=== PATIENT | female | born 1965 | race Caucasian/White ===

== ENCOUNTER → 2023-05-20 | Outpatient (CLI) | payer OTHER ==
[~2023-05-20] MED LIST: AMLO1TAB25; CAPE1TAB2 PO; DIPH2.5T15; EXEM25TA; GABA-1171; PRAM0.754; RYTA1CAP; TUCA150T PO; VENL150C43; [UNRECOGNIZED DRUG - CODE]
== END ==
LOC: M CARPUL 10:28
PROVIDERS: ATTEND Specialist
DX: C50.919 Malignant neoplasm of unspecified site of unspecified female breast (principal)

== ENCOUNTER → 2023-07-15 | Outpatient (CLI) | payer OTHER ==
[~2023-07-15] MED LIST changes: +BACI500O8 TOP; +CEPH500C
== END ==
LOC: M RAD 10:54
PROVIDERS: ATTEND Nurse Practitioner
DX: M25.551 Pain in right hip (principal)

== ENCOUNTER → 2023-07-16 | Outpatient (CLI) | payer OTHER | LOC: M ONCM 14:25 | PROVIDERS: ATTEND Dietitian, Registered | DX: Z71.3 Dietary counseling and surveillance (principal); D05.12 Intraductal carcinoma in situ of left breast; Z68.1 Body mass index [BMI] 19.9 or less, adult ==

== ENCOUNTER → 2023-08-16 | Outpatient (CLI) | payer OTHER ==
[~2023-08-16] MED LIST changes: +DIPH1TAB81; +DIPH1TAB81 PO; -DIPH2.5T15; +LOPE1CAP5 PO
== END ==
LOC: M PLAIMG 10:14
PROVIDERS: ATTEND Specialist
DX: C50.919 Malignant neoplasm of unspecified site of unspecified female breast (principal)

== ENCOUNTER → 2023-08-22 | Outpatient (CLI) | payer OTHER ==
[~2023-08-22] VITALS: Ht 157.5 cm; Wt 49.3 kg
[~2023-08-22] MED LIST changes: +HYDR-3713 PO
[2023-08-22 10:19] VITALS: BP 133/81; O2SAT 99
== END ==
LOC: M PAL 09:50
PROVIDERS: ATTEND Nurse Practitioner Adult Health
DX: G62.9 Polyneuropathy, unspecified (principal); G24.9 Dystonia, unspecified; M25.551 Pain in right hip; C50.912 Malignant neoplasm of unspecified site of left female breast; C78.7 Secondary malignant neoplasm of liver and intrahepatic bile duct; C78.89 Secondary malignant neoplasm of other digestive organs; G20.B1 Parkinson's disease with dyskinesia, without mention of fluctuations; R19.7 Diarrhea, unspecified; D69.6 Thrombocytopenia, unspecified; Z51.5 Encounter for palliative care; R29.6 Repeated falls; F17.210 Nicotine dependence, cigarettes, uncomplicated; Z71.2 Person consulting for explanation of examination or test findings; Z79.620 Long term (current) use of immunosuppressive biologic; Z79.899 Other long term (current) drug therapy; Z80.0 Family history of malignant neoplasm of digestive organs; Z80.1 Family history of malignant neoplasm of trachea, bronchus and lung; Z90.12 Acquired absence of left breast and nipple; Z91.048 Other nonmedicinal substance allergy status; Z96.82 Presence of neurostimulator

== ENCOUNTER → 2023-09-03 | Outpatient (CLI) | payer OTHER | LOC: M RAD 09:54 | PROVIDERS: ATTEND Specialist | DX: M25.551 Pain in right hip (principal) | CPT/HCPCS: 78306; A9503 ==

== ENCOUNTER → 2023-10-02 | Outpatient (CLI) | payer OTHER ==
[~2023-10-02] MED LIST changes: +AZIT-12 PO; +GASTROGRAFIN SOLUTION 30ML As Ordered ONE; +ISOVUE-370 76% 100ML VIAL As Ordered ONE
== END ==
LOC: M RAD 13:02
PROVIDERS: ATTEND Specialist
DX: C50.919 Malignant neoplasm of unspecified site of unspecified female breast (principal)
CPT/HCPCS: 71260; 74177; Q9963; Q9967

== ENCOUNTER → 2023-11-12 | Outpatient (CLI) | payer OTHER ==
[~2023-11-12] VITALS: Ht 157.5 cm; Wt 2.0 kg
[~2023-11-12] MED LIST changes: -AMLO1TAB25; +AMLO1TAB25 PO; +CHOL4POW26 PO; -GABA-1171; +GABA-1171 PO; -GASTROGRAFIN SOLUTION 30ML As Ordered ONE; -ISOVUE-370 76% 100ML VIAL As Ordered ONE; +POTA-151 PO; +PRAM0.754 PO; -VENL150C43; +VENL150C43 PO; -[UNRECOGNIZED DRUG - CODE]; +[UNRECOGNIZED DRUG - CODE] PO
[2023-11-12 08:53] VITALS: BP 140/89; O2SAT 97
== END ==
LOC: M PAL 08:41
PROVIDERS: ATTEND Nurse Practitioner Adult Health
DX: G62.9 Polyneuropathy, unspecified (principal); G24.9 Dystonia, unspecified; M25.551 Pain in right hip; C50.912 Malignant neoplasm of unspecified site of left female breast; C78.7 Secondary malignant neoplasm of liver and intrahepatic bile duct; C78.89 Secondary malignant neoplasm of other digestive organs; G20.B1 Parkinson's disease with dyskinesia, without mention of fluctuations; R19.7 Diarrhea, unspecified; D69.6 Thrombocytopenia, unspecified; Z51.5 Encounter for palliative care; R29.6 Repeated falls; F17.210 Nicotine dependence, cigarettes, uncomplicated; Z71.2 Person consulting for explanation of examination or test findings; Z79.620 Long term (current) use of immunosuppressive biologic; Z79.899 Other long term (current) drug therapy; Z80.0 Family history of malignant neoplasm of digestive organs; Z80.1 Family history of malignant neoplasm of trachea, bronchus and lung; Z90.12 Acquired absence of left breast and nipple; Z91.048 Other nonmedicinal substance allergy status; Z96.82 Presence of neurostimulator

== ENCOUNTER → 2023-11-25 | Outpatient (CLI) | payer OTHER ==
[~2023-11-25] MED LIST changes: +AMLO1TAB25; -AMLO1TAB25 PO; +GABA-1171; -GABA-1171 PO; +VENL150C43; -VENL150C43 PO; +[UNRECOGNIZED DRUG - CODE]; -[UNRECOGNIZED DRUG - CODE] PO
== END ==
LOC: M CARPUL 09:51
PROVIDERS: ATTEND Specialist
DX: C50.919 Malignant neoplasm of unspecified site of unspecified female breast (principal)

== ENCOUNTER → 2024-01-14 | Outpatient (CLI) | payer OTHER ==
[~2024-01-14] VITALS: Ht 157.5 cm; Wt 49.5 kg
[~2024-01-14] MED LIST changes: -AMLO1TAB25; +AMLO1TAB25 PO; -GABA-1171; +GABA-1171 PO; -VENL150C43; +VENL150C43 PO; -[UNRECOGNIZED DRUG - CODE]; +[UNRECOGNIZED DRUG - CODE] PO
[2024-01-14 13:14] VITALS: BP 153/91; O2SAT 97
== END ==
LOC: M PAL 12:52
PROVIDERS: ATTEND Nurse Practitioner Adult Health
DX: G62.9 Polyneuropathy, unspecified (principal); G24.9 Dystonia, unspecified; M25.551 Pain in right hip; C50.912 Malignant neoplasm of unspecified site of left female breast; C78.7 Secondary malignant neoplasm of liver and intrahepatic bile duct; C78.89 Secondary malignant neoplasm of other digestive organs; G20.B1 Parkinson's disease with dyskinesia, without mention of fluctuations; D69.6 Thrombocytopenia, unspecified; Z51.5 Encounter for palliative care; R29.6 Repeated falls; F17.210 Nicotine dependence, cigarettes, uncomplicated; Z79.620 Long term (current) use of immunosuppressive biologic; Z79.891 Long term (current) use of opiate analgesic; Z79.899 Other long term (current) drug therapy; Z80.0 Family history of malignant neoplasm of digestive organs; Z80.1 Family history of malignant neoplasm of trachea, bronchus and lung; Z90.12 Acquired absence of left breast and nipple; Z91.048 Other nonmedicinal substance allergy status; Z96.82 Presence of neurostimulator; Z71.2 Person consulting for explanation of examination or test findings

== ENCOUNTER → 2024-02-20 | Outpatient (CLI) | payer OTHER ==
[~2024-02-20] VITALS: Ht 157.5 cm; Wt 56.5 kg
[~2024-02-20] MED LIST changes: -RYTA1CAP; +RYTA1CAP PO
[2024-02-20 13:48] VITALS: BP 132/78; O2SAT 98
== END ==
LOC: M PAL 13:08
PROVIDERS: ATTEND Nurse Practitioner Adult Health
DX: G62.9 Polyneuropathy, unspecified (principal); M25.551 Pain in right hip; C50.912 Malignant neoplasm of unspecified site of left female breast; C78.7 Secondary malignant neoplasm of liver and intrahepatic bile duct; C78.89 Secondary malignant neoplasm of other digestive organs; G20.B1 Parkinson's disease with dyskinesia, without mention of fluctuations; D69.6 Thrombocytopenia, unspecified; R19.7 Diarrhea, unspecified; Z51.5 Encounter for palliative care; R29.6 Repeated falls; F17.210 Nicotine dependence, cigarettes, uncomplicated; Z79.620 Long term (current) use of immunosuppressive biologic; Z79.891 Long term (current) use of opiate analgesic; Z79.899 Other long term (current) drug therapy; Z80.0 Family history of malignant neoplasm of digestive organs; Z80.1 Family history of malignant neoplasm of trachea, bronchus and lung; Z90.12 Acquired absence of left breast and nipple; Z91.048 Other nonmedicinal substance allergy status; Z96.82 Presence of neurostimulator

== ENCOUNTER → 2024-05-04 | Outpatient (CLI) | payer OTHER | LOC: M PLARAD 09:31 | PROVIDERS: ATTEND Nurse Practitioner Women's Health | DX: C50.912 Malignant neoplasm of unspecified site of left female breast (principal) | CPT/HCPCS: 78815; A9552 ==

== ENCOUNTER → 2024-05-27 | Outpatient (CLI) | payer OTHER ==
[~2024-05-27] VITALS: Ht 157.5 cm; Wt 51.1 kg
[2024-05-27 13:11] VITALS: BP 156/94; O2SAT 97
== END ==
LOC: M PAL 12:53
PROVIDERS: ATTEND Family Medicine
DX: Z51.5 Encounter for palliative care (principal); C50.912 Malignant neoplasm of unspecified site of left female breast; C78.7 Secondary malignant neoplasm of liver and intrahepatic bile duct; C78.89 Secondary malignant neoplasm of other digestive organs; R52 Pain, unspecified; Z79.899 Other long term (current) drug therapy; Z91.048 Other nonmedicinal substance allergy status; Z92.21 Personal history of antineoplastic chemotherapy

== ENCOUNTER → 2024-06-26 | Outpatient (CLI) | payer OTHER | LOC: M CARPUL 10:55 | PROVIDERS: ATTEND Nurse Practitioner Women's Health | DX: Z51.81 Encounter for therapeutic drug level monitoring (principal); Z79.69 Long term (current) use of other immunomodulators and immunosuppressants; I08.3 Combined rheumatic disorders of mitral, aortic and tricuspid valves ==

== ENCOUNTER → 2024-07-09 | Outpatient (CLI) | payer OTHER ==
[~2024-07-09] MED LIST changes: +ONDA-282 PO
== END ==
LOC: M ONCR 09:59
PROVIDERS: ATTEND General Practice
DX: C77.2 Secondary and unspecified malignant neoplasm of intra-abdominal lymph nodes (principal); C50.912 Malignant neoplasm of unspecified site of left female breast; Z17.0 Estrogen receptor positive status [ER+]; Z17.21 Progesterone receptor positive status; Z17.31 Human epidermal growth factor receptor 2 positive status; F17.218 Nicotine dependence, cigarettes, with other nicotine-induced disorders; Z85.05 Personal history of malignant neoplasm of liver; Z90.12 Acquired absence of left breast and nipple; Z79.622 Long term (current) use of Janus kinase inhibitor; Z79.899 Other long term (current) drug therapy; Z91.048 Other nonmedicinal substance allergy status; Z96.82 Presence of neurostimulator; Z92.21 Personal history of antineoplastic chemotherapy

== ENCOUNTER 2024-07-22 13:45 | Outpatient (RCR) | payer OTHER ==
[2024-07-22] MEDS ORDERED: LOPE1CAP5 PO (14:01)
== END 2024-07-27 ==
LOC: M ONCR 13:45
PROVIDERS: ATTEND General Practice
DX: Z51.0 Encounter for antineoplastic radiation therapy (principal); C77.2 Secondary and unspecified malignant neoplasm of intra-abdominal lymph nodes

== ENCOUNTER → 2024-07-28 | Outpatient (CLI) | payer OTHER ==
[~2024-07-28] VITALS: Ht 157.5 cm; Wt 50.4 kg
[2024-07-28 13:54] VITALS: BP 156/95; O2SAT 96
== END ==
LOC: M PAL 13:19
PROVIDERS: ATTEND Physician Assistant
DX: Z51.5 Encounter for palliative care (principal); C50.912 Malignant neoplasm of unspecified site of left female breast; C78.7 Secondary malignant neoplasm of liver and intrahepatic bile duct; C78.89 Secondary malignant neoplasm of other digestive organs; Z92.21 Personal history of antineoplastic chemotherapy; Z79.891 Long term (current) use of opiate analgesic; Z91.048 Other nonmedicinal substance allergy status; Z79.899 Other long term (current) drug therapy

== ENCOUNTER 2024-08-13 10:57 | Outpatient (RCR) | payer OTHER ==
[~2024-08-13 10:57] MED LIST changes: -ISOVUE-370 76% 100ML VIAL As Ordered ONE
== END 2024-08-26 ==
LOC: M ONCR 10:57
PROVIDERS: ATTEND General Practice
DX: Z51.0 Encounter for antineoplastic radiation therapy (principal); C77.2 Secondary and unspecified malignant neoplasm of intra-abdominal lymph nodes

== ENCOUNTER → 2024-08-13 | Outpatient (CLI) | payer OTHER ==
[~2024-08-13] MED LIST changes: +ISOVUE-370 76% 100ML VIAL As Ordered ONE
== END ==
LOC: M RAD 10:20
DX: C50.919 Malignant neoplasm of unspecified site of unspecified female breast (principal)
CPT/HCPCS: 71260; 74177; Q9967

== ENCOUNTER → 2024-09-08 | Outpatient (REF) | payer OTHER ==
[2024-09-09 12:38] LABS: CLOSTRIDIUM DIFFICILE PCR NEGATIVE (NEGATIVE)
== END ==
LOC: M LAB REF 11:04
PROVIDERS: ATTEND Specialist
DX: C50.919 Malignant neoplasm of unspecified site of unspecified female breast (principal)

== ENCOUNTER → 2024-11-06 | Outpatient (CLI) | payer OTHER ==
[~2024-11-06] MED LIST changes: +POTA-298 PO
== END ==
LOC: M ONCR 10:50
PROVIDERS: ATTEND General Practice
DX: C77.2 Secondary and unspecified malignant neoplasm of intra-abdominal lymph nodes (principal); G20.C Parkinsonism, unspecified; Z79.899 Other long term (current) drug therapy; Z96.82 Presence of neurostimulator; Z85.3 Personal history of malignant neoplasm of breast; Z92.3 Personal history of irradiation; Z91.048 Other nonmedicinal substance allergy status

== ENCOUNTER → 2025-01-26 | Outpatient (CLI) | payer OTHER | LOC: M CARPUL 15:27 | DX: C50.919 Malignant neoplasm of unspecified site of unspecified female breast (principal); I50.30 Unspecified diastolic (congestive) heart failure; I08.0 Rheumatic disorders of both mitral and aortic valves ==

== ENCOUNTER → 2025-02-02 | Outpatient (CLI) | payer OTHER ==
[~2025-02-02] MED LIST changes: +ISOVUE-370 76% 100 ML VIAL As Ordered ONE
== END ==
LOC: M RAD 13:14
PROVIDERS: ATTEND General Practice
DX: C50.919 Malignant neoplasm of unspecified site of unspecified female breast (principal); J98.11 Atelectasis; I25.10 Atherosclerotic heart disease of native coronary artery without angina pectoris; K57.90 Diverticulosis of intestine, part unspecified, without perforation or abscess without bleeding; I70.0 Atherosclerosis of aorta; J43.2 Centrilobular emphysema
CPT/HCPCS: 71260; 74177; Q9967

== ENCOUNTER → 2025-02-09 | Outpatient (CLI) | payer OTHER ==
[~2025-02-09] MED LIST changes: -ISOVUE-370 76% 100 ML VIAL As Ordered ONE
== END ==
LOC: M ONCR 13:38
PROVIDERS: ATTEND General Practice
DX: C77.2 Secondary and unspecified malignant neoplasm of intra-abdominal lymph nodes (principal); Z85.3 Personal history of malignant neoplasm of breast; Z90.12 Acquired absence of left breast and nipple; Z92.3 Personal history of irradiation; Z91.048 Other nonmedicinal substance allergy status; Z79.899 Other long term (current) drug therapy